=== PATIENT | female | born 1990 | race Hispanic/Latino ===

== ENCOUNTER 2019-07-14 17:34 | Emergency (ER) | payer OTHER | END 2019-07-14 18:25 | disposition home or self-care (01) | LOC: EDH 17:34 | DX: K59.00 Constipation, unspecified (principal) ==

== ENCOUNTER 2019-08-23 01:24 | Emergency (ER) | payer OTHER ==
[2019-08-23] MEDS ORDERED: ACETAMINOPHEN EXTRA STRENGTH 500 MG TABLET ONE (02:07)
[2019-08-23] MEDS ORDERED: ALBUTEROL SULFATE 0.083% 2.5 MG/3 ML INH IH ONE (02:09)
[2019-08-23] MEDS ORDERED: PREDNISONE 20 MG TABLET ONE (03:15)
== END 2019-08-23 03:22 | disposition home or self-care (01) ==
LOC: EDH 01:24
DX: J20.9 Acute bronchitis, unspecified (principal); J10.1 Influenza due to other identified influenza virus with other respiratory manifestations
CPT/HCPCS: 71046; 81025; 82948; 87804; 94640

== ENCOUNTER 2021-03-17 18:10 | Emergency (ER) | payer OTHER ==
[~2021-03-17] VITALS: Ht 152.4 cm; Wt 68.0 kg
[2021-03-17 18:11] VITALS: BP 141/98
[2021-03-17 18:42] LABS: APPEARANCE,URINE CLEAR (CLEAR); BILIRUBIN,URINE Negative (NEGATIVE); COLOR,URINE Yellow (YELLOW); GLUCOSE, URINE (UA) Negative (NEGATIVE); KETONES,URINE Negative (NEGATIVE); LEUKOCYTE ESTERASE ,URINE Negative (NEGATIVE); NITRATE,URINE Negative (NEGATIVE); OCCULT BLOOD,URINE Negative (NEGATIVE); PROTEIN,URINE Negative (NEGATIVE)
[2021-03-17 18:44] LABS: HCG,QUAL RESULT NEGATIVE (NEGATIVE)
[2021-03-17 18:50] LABS: BASOPHILS % (AUTO) 0.4 % (0.0-5.0); EOSINOPHILS % (AUTO) 2.2 % (0.0-8.0); HEMATOCRIT 37.8 % (36-48); LYMPHOCYTES % (AUTO) 26.7 % (21.0-51.0); MEAN CORPUSCULAR HEMOGLOBIN 28.9 pg (27.0-33.0); MEAN CORPUSCULAR HGB CONC 33.6 g/dL (32.0-36.0); MEAN CORPUSCULAR VOLUME 85.9 fL (79-99); MONOCYTES % (AUTO) 10.1 % (3.0-13.0); NEUTROPHILS % (AUTO) 60.3 % (40.0-77.0); PLATELET COUNT (AUTO) 283 K/uL (130-400); RED CELL DISTRIBUTION WIDTH 13.3 % (11.0-15.5); WHITE BLOOD COUNT (AUTO) 7.8 K/uL (4.8-10.8)
[2021-03-17] MEDS ORDERED: ONDANSETRON 4MG INJ IVP ONE (19:00)
[2021-03-17] MEDS ORDERED: ONDANSETRON 4MG INJ ONE (19:00)
[2021-03-17 19:03] LABS: CREATININE 0.6 mg/dL (0.5-1.5); POTASSIUM 3.6 mmol/L (3.5-5.1)
[2021-03-17 19:07] LABS: ALBUMIN 3.6 g/dL (3.5-5.0); BILIRUBIN,TOTAL 0.5 mg/dL (0.2-1.0); TOTAL PROTEIN, SERUM 8.2 g/dL (6.0-8.3)
[2021-03-17] MEDS ORDERED: MORPHINE 4 MG SYG IM ONE (20:30)
[2021-03-17] MEDS ORDERED: METR500T PO (20:56)
[2021-03-17] MEDS ORDERED: DICY20TA2 PO (20:56)
[2021-03-17] MEDS ORDERED: ONDA4TAB10 PO (20:56)
[2021-03-17] MEDS ORDERED: CIPR-278 PO (20:56)
[2021-03-17] MEDS: METRONIDAZOLE 500 MG TABLET PO SCH ×2 (20:56→20:57)
[2021-03-17] MEDS ORDERED: LEVOFLOXACIN 500 MG TABLET PO SCH (21:00)
== END 2021-03-17 21:25 | disposition home or self-care (01) ==
LOC: EDH 18:10
DX: K57.32 Diverticulitis of large intestine without perforation or abscess without bleeding (principal); Z79.899 Other long term (current) drug therapy
CPT/HCPCS: 36415; 74176; 80053; 81003; 81025; 82150; 83690; 85025; 96372; 96374; 99285; J2270; J2405

== ENCOUNTER 2021-12-20 12:24 | Emergency (ER) | payer OTHER ==
[~2021-12-20] VITALS: Ht 152.4 cm; Wt 68.0 kg
[~2021-12-20 12:24] MED LIST: CIPR-278 PO; DICY20TA2 PO; METR500T PO; ONDA4TAB10 PO
[2021-12-20 12:29] VITALS: BP 134/91
[2021-12-20 12:51] LABS: APPEARANCE,URINE CLEAR (CLEAR); BILIRUBIN,URINE NEGATIVE (NEGATIVE); COLOR,URINE YELLOW (YELLOW); GLUCOSE, URINE (UA) NEGATIVE (NEGATIVE); KETONES,URINE NEGATIVE (NEGATIVE); LEUKOCYTE ESTERASE ,URINE SMALL (NEGATIVE); NITRATE,URINE NEGATIVE (NEGATIVE); OCCULT BLOOD,URINE NEGATIVE (NEGATIVE); PROTEIN,URINE NEGATIVE (NEGATIVE); UROBILINOGEN,URINE 0.2 mg/dL (0.2-1.0)
[2021-12-20 12:52] LABS: HCG,QUAL RESULT NEGATIVE (NEGATIVE)
[2021-12-20] MEDS ORDERED: ALBUTEROL INHALER 90MCG/INH IH ONE (13:00)
[2021-12-20] MEDS ORDERED: GUAIFENESIN-CODEINE 5 ML SYRUP PO ONE (13:00)
[2021-12-20 13:02] LABS: BASOPHILS % (AUTO) 0.2 % (0.0-5.0); EOSINOPHILS % (AUTO) 2.7 % (0.0-8.0); HEMATOCRIT 41.4 % (36-48); LYMPHOCYTES % (AUTO) 17.1 % (21.0-51.0); MEAN CORPUSCULAR HEMOGLOBIN 28.9 pg (27.0-33.0); MEAN CORPUSCULAR HGB CONC 34.1 g/dL (32.0-36.0); MEAN CORPUSCULAR VOLUME 84.8 fL (79-99); MONOCYTES % (AUTO) 6.6 % (3.0-13.0); NEUTROPHILS % (AUTO) 73.1 % (40.0-77.0); PLATELET COUNT (AUTO) 286 K/uL (130-400); RED BLOOD CELL COUNT(AUTO) 4.88 MIL/uL (4.00-5.50); RED CELL DISTRIBUTION WIDTH 13.2 % (11.0-15.5); WHITE BLOOD COUNT (AUTO) 8.9 K/uL (4.8-10.8)
[2021-12-20 13:03] LABS: RBC,URINE 0-1 /HPF (0-1); WBC,URINE 26-50 /HPF (0-1)
[2021-12-20 13:04] LABS: BACTERIA,URINE Moderate /HPF (None Seen); SQUAMOUS EPITHELIAL CELL,UR Many /HPF (0-2)
[2021-12-20 13:05] LABS: MUCUS,URINE Few LPF (None Seen)
[2021-12-20 13:27] LABS: CREATININE 0.7 mg/dL (0.5-1.5); POTASSIUM 3.9 mmol/L (3.5-5.1)
[2021-12-20] MEDS ORDERED: CEFTRIAXONE 1G VIAL ONE (13:27)
[2021-12-20] MEDS ORDERED: CEFTRIAXONE 1G VIAL IVP ONE (13:30)
[2021-12-20 13:31] LABS: BILIRUBIN,TOTAL 0.5 mg/dL (0.2-1.0); TOTAL PROTEIN, SERUM 8.6 g/dL (6.0-8.3)
[2021-12-20] MEDS ORDERED: CYCLOBENZAPRINE HCL 10 MG TABLET PO ONE (13:50)
[2021-12-20] MEDS ORDERED: D-ME1POW16 PO (14:08)
[2021-12-20] MEDS ORDERED: CEPH500B PO (14:08)
[2021-12-20] MEDS ORDERED: PHEN-847 PO (14:08)
== END 2021-12-20 14:27 | disposition home or self-care (01) ==
LOC: EDH 12:24
DX: J06.9 Acute upper respiratory infection, unspecified (principal); N39.0 Urinary tract infection, site not specified; Z20.822 Contact with and (suspected) exposure to COVID-19
CPT/HCPCS: 36415; 71045; 80053; 81001; 81025; 83690; 84484; 85025; 87088; 87635; 87804 ×2; 87880; 96374; 99284; C9803; J0696

== ENCOUNTER 2024-06-18 06:43 | Emergency (ER) | payer SELFPAY ==
[~2024-06-18] VITALS: Ht 149.9 cm; Wt 57.7 kg
[~2024-06-18 06:43] MED LIST changes: +CEPH500B PO; +D-ME1POW16 PO; +ONDA-243 PO; -ONDA4TAB10 PO; +PHEN-847 PO
--- NOTE | 2024-06-18 07:54 | ERN ---
ED Note History of Present Illness Stated Complaint: ABD PAIN Chief Complaint: Abdominal Pain Time Seen by MD: 07:20 Dictation: Patient is a 34 male who presents to the ED for left-sided abdominal pain that began 2 days ago. Patient states she has a history of diverticulitis that was diagnosed 2 years ago for which she was hospitalized and given antibiotics. She took a laxative yesterday that helped relieve some pain and was able to have a small bowel movement. She denies any bloody stools, chest pain, shortness of breath, fevers, nausea or vomiting. She does admit to having some chills and fatigue. Allergies: Coded Allergies: No Known Drug Allergies (Unverified Allergy, Unknown, 08/23/19) Home Meds Active Scripts Ciprofloxacin HCl (Ciprofloxacin HCl) 500 Mg Tablet, 1 TAB PO BID for 7 Days, #14 TAB 0 Refills Prov:TIA ALEXANDER MD 06/18/24 Metronidazole (Metronidazole) 500 Mg Tablet, 1 TAB PO BID for 7 Days, #14 TAB 0 Refills Prov:TIA ALEXANDER MD 06/18/24 D-Methorphan/PE/Acetaminophen (Theraflu Ms Severe Cold Pckt) 1 Each Powd.pack, 1 EACH PO QID, #20 PACK Prov:TAE JIN 12/20/21 Phenazopyridine HCl (Pyridium) 200 Mg Tab, 200 MG PO TIDPC, #9 TAB TAKE WITH FOOD TO PREVENT STOMACH UPSET. Prov:TAE JIN 12/20/21 Cephalexin Monohydrate (Keflex) 500 Mg Cap, 500 MG PO TID for 7 Days, #21 CAP Prov:TAE JIN 12/20/21 Ondansetron (Ondansetron Odt) 4 Mg Tab.rapdis, 4 MG PO QIDP, #28 TAB Prov:TAE JIN 03/17/21 Dicyclomine HCl (Bentyl) 20 Mg Tab, 20 MG PO QIDP, #28 TAB Prov:TAE JIN 03/17/21 Ciprofloxacin HCl (Cipro) 500 Mg Tablet, 1 TAB PO BID for 7 Days, #14 TAB 0 Refills Prov:TAE JIN 03/17/21 Metronidazole (Flagyl) 500 Mg Tablet, 1 TAB PO TID for 7 Days, #21 TAB 0 Refills Prov:ELPIDIO JINBERNARD MARTIN 03/17/21 Past Medical History Past Medical History: Diverticulitis Additional Past Medical Hx: OVARIAN CYST Surgical History: None Family History: Negative Social History: Negative LMP: May 21, 2024 Review of System Dictation Constitutional-no weight loss/gain, fever. positive for chills Eyes-no injury, pain, redness and discharge ENT-no injury, pain, swelling Cardiovascular no chest pain, palpitations, edema Respiratory no shortness of breath, cough, wheezing Abdomen/GI-no diarrhea, constipation, vomiting, nausea. positive for left sided abdominal pain Back no injury and pain Genitourinary no injury, bleeding and discharge Musculoskeletal/extremities no injury, deformity Skin no rash, discoloration Neuro-no headache, weakness, numbness, tingling, seizures, tremors Psych-no suicidal ideation, homicidal ideation, hallucinations, depression, anxi ety, memory loss Initial Vital Sign VS Vital Signs Date Time Temp Pulse Resp B/P (MAP) Pulse Ox O2 Delivery O2 Flow Rate FiO2 06/18/24 07:14 98.1 82 16 129/85 100 Room Air 0 06/18/24 11:57 21 Physical Exam Dictation General-patient is awake alert and oriented Head/neck-normocephalic, atraumatic Eyes-PERRL, EOMI, vision at baseline Neck-trachea midline, supple, no nuchal rigidity Cardiovascular-RRR, normal S1/S2, no MRG is, no JVD Respiratory-no distress, wheezing, rales, rhonchi Abdomen-soft, nondistended. positive for guarding and tenderness in mid and left lower abdomen. Skin warm, dry, normal turgor, no rash Musculoskeletal/extremities pulses equal, no cyanosis Neuro-COA X 4, GCS 15, strength 5/5, CN 2-12 intact Psych-normal behavior, mood and affect normal Results (Laboratory/Radiology) Laboratory/Radiology Laboratory Tests Test 06/18/24 07:44 06/18/24 09:21 Urine Color LIGHT-YELLOW (YELLOW) Urine Appearance CLEAR (CLEAR) Urine pH 5.5 (5.0-8.0) Urine Specific [place]ter 1.026 (1.001-1.031) Urine Protein NEGATIVE mg/dL (NEGATIVE) Urine Glucose (UA) NEGATIVE mg/dL (NEGATIVE) Urine Ketones NEGATIVE mg/dL (NEGATIVE) Urine Occult Blood NEGATIVE (NEGATIVE) Urine Nitrate NEGATIVE (NEGATIVE) Urine Bilirubin NEGATIVE mg/dL (NEGATIVE) Urine Urobilinogen 0.2 mg/dL (0.2-1.0) Urine Leukocyte Esterase NEGATIVE Tenisha/uL Urine HCG, Qualitative NEGATIVE (NEGATIVE) White Blood Count 7.5 K/uL (4.8-10.8) Red Blood Count 4.37 MIL/uL (4.00-5.50) Hemoglobin 12.9 g/dL (12.0-16.0) Hematocrit 39.1 % (36-48) Mean Corpuscular Volume 89.5 fL (79-99) Mean Corpuscular Hemoglobin 29.5 pg (27.0-33.0) Mean Corpuscular Hemoglobin Concent 33.0 g/dL (32.0-36.0) Red Cell Distribution Width 13.2 % (11.0-15.5) Platelet Count 236 K/uL (130-400) Mean Platelet Volume 9.9 fL (7.5-10.5) Immature Granulocyte % (Auto) 0.4 % (0-1) Neutrophils (%) (Auto) 70.2 % (40.0-77.0) Lymphocytes (%) (Auto) 20.9 % (21.0-51.0) L Monocytes (%) (Auto) 7.1 % (3.0-13.0) Eosinophils (%) (Auto) 1.1 % (0.0-8.0) Basophils (%) (Auto) 0.3 % (0.0-5.0) Neutrophils # (Auto) 5.3 K/uL (1.8-7.7) Lymphocytes # (Auto) 1.6 K/uL (1.0-4.8) Monocytes # (Auto) 0.5 K/uL (0.1-1.0) Eosinophils # (Auto) 0.08 K/uL (0.00-0.70) Basophils # (Auto) 0.02 K/uL (0.00-0.20) Absolute Immature Granulocyte (auto 0.03 K/uL (0-1) Nucleated Red Blood Cells 0.0 % (0.0-0.19) Sodium Level 138 mmol/L (136-145) Potassium Level 4.2 mmol/L (3.5-5.1) Chloride Level 105 mmol/L (101-111) Carbon Dioxide Level 29 mmol/L (21-32) Blood Urea Nitrogen 13 mg/dL (7-18) Creatinine 0.6 mg/dL (0.5-1.0) Glomerular Filtration Rate Calc 121 mL/min (>90) Random Glucose 89 mg/dL (70-105) Total Calcium 8.8 mg/dL (8.5-10.1) Total Bilirubin 0.3 mg/dL (0.2-1.0) Aspartate Amino Transf (AST/SGOT) 14 U/L (10-37) Alanine Aminotransferase (ALT/SGPT) 22 U/L (12-78) Alkaline Phosphatase 73 U/L (50-136) Total Protein 8.2 g/dL (6.0-8.3) Albumin 3.5 g/dL (3.5-5.0) CT Scan Comment: CT abdomen/pelvis: FINDINGS: No pleural effusion is seen bilaterally. There is no evidence of parenchymal disease or pulmonary nodule of the visualized lower lungs. Degenerative changes of the thoracolumbar spine are present. The heart is not enlarged. Liver is enlarged measuring 19 cm. There is diverticulosis. There is sigmoid colon wall thickening with adjacent fat stranding suggestive of acute sigmoid diverticulitis. No focal abscess is The liver, spleen, adrenal glands and pancreas are unremarkable. There is no evidence of hydronephrosis bilaterally. No evidence of renal stone is seen. Fecal material is seen in the colon. There are normal size retroperitoneal and mesenteric lymph nodes. No ascites is seen. Atherosclerotic changes are present. Pelvic sidewalls are symmetric bilaterally. Bladder is well distended without wall thickening. IMPRESSION: 1. Suspect acute sigmoid diverticulitis. No focal abscess is seen. ED Course ED Course Orders Procedure Category Date Status Time ,Urine Test LAB 06/18/24 Complete 07:19 Urinalysis Profile LAB 06/18/24 Complete 07:19 Cbc With Differential LAB 06/18/24 Complete 07:19 Comprehensive LAB 06/18/24 Complete Metabolic Panel 07:19 Ct Abdomen/Pelvis W/O CT 06/18/24 Resulted Contrast 09:56 Ketorolac PHA 06/18/24 Complete Tromethamine 15mg/Ml 11:30 Current Medications Medications (Trade) Dose Ordered Sig/Olga Route PRN Reason Start Time Stop Time Status Last Admin Dose Admin Ketorolac Tromethamine (toRADol) 15 mg ONCE ONCE IV 06/18/24 11:30 06/18/24 11:31 DC 06/18/24 11:23 Vital Signs Date Time Temp Pulse Resp B/P (MAP) Pulse Ox O2 Delivery O2 Flow Rate FiO2 06/18/24 11:57 98.4 84 17 125/78 100 Room Air* 0 21 06/18/24 07:14 98.1 82 16 129/85 100 Room Air 0 Medical Decision Making [facility] INITIAL IMPRESSION Initial history and physical concerning for diverticulitis Contributing medical problems: Hx of diverticulitis I have reviewed the triage nursing notes and vital signs. Initial plan: Laboratory evaluation, CT of abdomen/pelvis DATA REVIEW I have reviewed additional NN, repeat VS, and monitoring where indicated. Heart rate, blood pressure, and O2 saturation are acceptable. ED COURSE Interventions: None Reassessment: Not indicated DISPOSITION Final diagnostic impression: Suspected acute sigmoid diverticulitis I discussed my findings, clinical impression and treatment recommendations with the patient. My final plan for disposition was made based upon -mild risk of complications and potential morbidity of the patient's condition. -Discussion with the patient regarding management options. Patient will be discharged on antibiotics and advised to follow up with GI. DX & DISP Disposition: Discharge Departure Impression: Primary Impression: Sigmoid diverticulitis Condition: Stable Scripts Ciprofloxacin HCl (Ciprofloxacin HCl) 500 Mg Tablet 1 TAB PO BID for 7 Days, #14 TAB 0 Refills Prov: TIA ALEXANDER MD 06/18/24 Metronidazole (Metronidazole) 500 Mg Tablet 1 TAB PO BID for 7 Days, #14 TAB 0 Refills Prov: TIA ALEXANDER MD 06/18/24 Additional Instructions: You may need to drink only liquids or eat a low-fiber diet to help your colon rest. You can gradually increase your food intake and add more fiber back into her diet as you recover. Take prescribed antibiotics as directed even if you are feeling better. Since you are taking metronidazole, do not drink alcohol. Drinks 6-8 glasses of water each day, you can try using a heating pad or hot water bottle to reduce abdominal pain. Get extra rest until you feel better. Follow-up with your PCP or a GI specialist. FOLLOW-UP WITH PRIMARY CARE PROVIDER IN 1 TO 2 DAYS. TAKE MEDICATIONS DIRECTED HERE IN THE EMERGENCY ROOM. OKAY TO CONTINUE HOME MEDICATIONS UNLESS OTHERWISE DISCUSSED DURING YOUR VISIT IN THE EMERGENCY ROOM TODAY. RETURN TO YOUR NEAREST EMERGENCY ROOM IF SYMPTOMS WORSEN OR IF THERE IS NO IMPROVEMENT. CALL 911 IF YOU NEED IMMEDIATE ASSISTANCE. TAKE TYLENOL [id number] NEEDED AND IF NO CONTRAINDICATIONS ARE PRESENT. INCREASE ORAL HYDRATION. A WOUND CULTURE OR URINE CULTURE WAS ORDERED HERE IN THE EMERGENCY ROOM DEPARTMENT PLEASE FOLLOW-UP WITH PRIMARY CARE PROVIDER AND ADVISE THEM TO GET REPEAT PORTS FROM OUR FACILITY. IF YOU HAD ANY BRYCE WRAP/SPLINTS THAT WERE APPLIED HERE, PLEASE DO NOT REMOVE THEM UNTIL YOU SEE YOUR PRIMARY CARE OR SPECIALTY. Referrals: SELF,REFERRAL (PCP) Time of Disposition: 11:27 I have reviewed I have reviewed the case I was present and participated in the care of this patient alongside the resident physician. I have reviewed and personally made and improve the management plan that is documented in the note by myself or the resident physician. I acknowledge full responsibility for the patient's management plan. I have examined patient TIA ALEXANDER MD Jun 18, 2024 07:54 ALIYAH MCCLELLAN MD Jun 18, 2024 18:19
[2024-06-18 08:30] LABS: APPEARANCE,URINE CLEAR (CLEAR); BILIRUBIN,URINE NEGATIVE (NEGATIVE); COLOR,URINE LIGHT-YELLOW (YELLOW); GLUCOSE, URINE (UA) NEGATIVE (NEGATIVE); KETONES,URINE NEGATIVE (NEGATIVE); LEUKOCYTE ESTERASE ,URINE NEGATIVE Leu/uL (NEGATIVE); NITRATE,URINE NEGATIVE (NEGATIVE); OCCULT BLOOD,URINE NEGATIVE (NEGATIVE); PH,URINE 5.5 (5.0-8.0); PROTEIN,URINE NEGATIVE (NEGATIVE); UROBILINOGEN,URINE 0.2 mg/dL (0.2-1.0)
[2024-06-18 08:34] LABS: ADD UA MICROSCOPIC NO; HCG,QUALITATIVE URINE NEGATIVE (NEGATIVE)
--- NOTE | 2024-06-18 08:57 | NUR ---
PT JUST NOW PLACED IN MY HALLWAY B
[2024-06-18 09:28] LABS: BASOPHILS # (AUTO) 0.02 K/uL (0.00-0.20); BASOPHILS % (AUTO) 0.3 % (0.0-5.0); EOSINOPHILS # (AUTO) 0.08 K/uL (0.00-0.70); EOSINOPHILS % (AUTO) 1.1 % (0.0-8.0); HEMATOCRIT 39.1 % (36-48); IMMATURE GRANULOCYTE ABSOLUTE 0.03 K/uL (0-1); LYMPHOCYTES # (AUTO) 1.6 K/uL (1.0-4.8); LYMPHOCYTES % (AUTO) 20.9 % (21.0-51.0); MEAN CORPUSCULAR HEMOGLOBIN 29.5 pg (27.0-33.0); MEAN CORPUSCULAR VOLUME 89.5 fL (79-99); MONOCYTES # (AUTO) 0.5 K/uL (0.1-1.0); MONOCYTES % (AUTO) 7.1 % (3.0-13.0); NEUTROPHILS # (AUTO) 5.3 K/uL (1.8-7.7); NEUTROPHILS % (AUTO) 70.2 % (40.0-77.0); PLATELET COUNT (AUTO) 236 K/uL (130-400); RED BLOOD CELL COUNT(AUTO) 4.37 MIL/uL (4.00-5.50); RED CELL DISTRIBUTION WIDTH 13.2 % (11.0-15.5); WHITE BLOOD COUNT (AUTO) 7.5 K/uL (4.8-10.8)
[2024-06-18 09:42] LABS: CREATININE 0.6 mg/dL (0.5-1.0); POTASSIUM 4.2 mmol/L (3.5-5.1)
[2024-06-18 09:46] LABS: ALBUMIN 3.5 g/dL (3.5-5.0); BILIRUBIN,TOTAL 0.3 mg/dL (0.2-1.0); TOTAL PROTEIN, SERUM 8.2 g/dL (6.0-8.3)
--- NOTE | 2024-06-18 10:58 | NUR ---
PT JUST LEFT FOR CT VIA W/C W/TRANSPORTER
--- NOTE | 2024-06-18 11:09 | NUR ---
PT JUST RETURNED FROM CT SCAN AND WOULD LIKE SOMETHING FOR HER ABD DISCOMFORT
--- NOTE | 2024-06-18 11:16 | NUR ---
DR MCCLELLAN INFORMED OF PT DISCOMFORT AND HAS AUTHORIZED THE ORDER OF TORADOL X 1 DOSE TO BE GIVEN
--- NOTE | 2024-06-18 11:20 | HMCIMG ---
CT ABDOMEN/PELVIS W/O CONTRAST HISTORY: Left-sided abdominal pain COMPARISON: 03/17/2021 TECHNIQUE: Multiple sequential axial images of the abdomen and pelvis were obtained from the dome of the diaphragm through symphysis pubis. Patient was not given contrast through intravenous route. Oral contrast was not given. FINDINGS: No pleural effusion is seen bilaterally. There is no evidence of parenchymal disease or pulmonary nodule of the visualized lower lungs. Degenerative changes of the thoracolumbar spine are present. The heart is not enlarged. Liver is enlarged measuring 19 cm. There is diverticulosis. There is sigmoid colon wall thickening with adjacent fat stranding suggestive of acute sigmoid diverticulitis. No focal abscess is The liver, spleen, adrenal glands and pancreas are unremarkable. There is no evidence of hydronephrosis bilaterally. No evidence of renal stone is seen. Fecal material is seen in the colon. There are normal size retroperitoneal and mesenteric lymph nodes. No ascites is seen. Atherosclerotic changes are present. Pelvic sidewalls are symmetric bilaterally. Bladder is well distended without wall thickening. IMPRESSION: 1. Suspect acute sigmoid diverticulitis. No focal abscess is seen. CT was performed with one or more following dose reduction techniques: automated exposure control, adjustment of the mA and kv according to patient's size, or use of a iterative reconstruction technique.
[2024-06-18] MEDS: ketOROlac 15MG/ML VIAL (15MG/ML) IV ONE (11:23)
[2024-06-18] MEDS ORDERED: METR-172 PO (11:27)
[2024-06-18] MEDS ORDERED: CIPR500T10 PO (11:27)
[2024-06-18 11:57] VITALS: BP 125/78; PULSE 84; RESP 17; TEMP 98.4; O2SAT 100
== END 2024-06-18 12:13 | disposition home or self-care (01) ==
LOC: EDH 06:43
DX: K57.32 Diverticulitis of large intestine without perforation or abscess without bleeding (principal)
CPT/HCPCS: 99285; 74176; 96374; 80053; 85025; 81003; 81025; 36415; J1885